=== PATIENT | female | born 1980 | race African-American/Black ===

== ENCOUNTER 2022-03-19 12:57 | Emergency (ER) | payer BC ==
[~2022-03-19] VITALS: Ht 165.1 cm; Wt 69.0 kg
[2022-03-19 19:15] VITALS: BP 119/54
[2022-03-19] MEDS ORDERED: LIDOCAINE 5% PATCH TOP SCH (19:15)
[2022-03-19] MEDS ORDERED: KETOROLAC 60MG/2ML VIAL IM ONE (19:15)
[2022-03-19] MEDS ORDERED: METHOCARBAMOL 500MG TABLET PO ONE (19:15)
[2022-03-19] MEDS ORDERED: METH-773 MT (20:30)
== END 2022-03-20 04:18 | disposition home or self-care (01) ==
LOC: ER 12:57
DX: M47.892 Other spondylosis, cervical region (principal); Z87.39 Personal history of other diseases of the musculoskeletal system and connective tissue
CPT/HCPCS: 72040; 96372; 99283; J1885